=== PATIENT | female | born 2000 | race Caucasian/White ===

== ENCOUNTER 2021-06-16 11:15 | Emergency (ER) | payer MEDICAID ==
[~2021-06-16] VITALS: Ht 162.6 cm; Wt 54.5 kg
[2021-06-16 11:31] VITALS: BP 105/73
[2021-06-16] MEDS ORDERED: ALBU6.7H9 INH (13:34)
[2021-06-16] MEDS ORDERED: ONDA4TAB6 PO (13:34)
[2021-06-16] MEDS ORDERED: DEXA4TAB67 PO (13:34)
--- NOTE | 2021-06-16 13:49 | NUR ---
Patient seen, assessed and discharged by provider.
== END 2021-06-16 13:50 | disposition home or self-care (01) ==
LOC: ER 11:15
DX: U07.1 COVID-19 (principal); J02.9 Acute pharyngitis, unspecified; R19.7 Diarrhea, unspecified; R05 Cough; R50.9 Fever, unspecified; R51.9 Headache, unspecified; F12.90 Cannabis use, unspecified, uncomplicated; Z79.899 Other long term (current) drug therapy
CPT/HCPCS: 87635; 99283; C9803